=== PATIENT | male | born 1985 | race Caucasian/White ===

== ENCOUNTER → 2019-09-03 10:50 | Outpatient (CLI) | payer OTHER, SELFPAY ==
[2019-09-03 12:10] LABS: Semen Sperm Prescence Post-Vas Absent (ABSENT)
== END ==
PROVIDERS: Family Medicine; PCP Family Medicine; Referring Provider Family Medicine; Visit Provider Family Medicine
DX: Z98.52 Vasectomy status (principal)
CPT/HCPCS: 89321

== ENCOUNTER → 2020-10-08 10:27 | Outpatient (CLI) | payer OTHER, SELFPAY ==
[2020-10-08] MEDS: COVID-19 VACC, Ad26(JANSSEN)/PF 0.5 ML IM (10:31)
== END ==
PROVIDERS: PCP Family Medicine; Visit Provider Internal Medicine
DX: Z23 Encounter for immunization (principal)
CPT/HCPCS: 0031A; 91303

== ENCOUNTER 2021-02-14 20:02 | Emergency (ER) | payer OTHER, SELFPAY ==
[2021-02-14 20:45] VITALS: BP 143/89; PULSE 75; RESP 17; TEMP 36.6; O2SAT 98
--- NOTE | 2021-02-15 00:58 | ED_ITS ---
HPI - Wound/Laceration General Chief Complaint: Wound/Laceration Stated Complaint: LEFT HAND LACERATION Time Seen by Provider: 02/15/21 00:58 Source: patient Mode of arrival: Ambulatory Limitations: no limitations History of Present Illness HPI narrative: This is a 35-year-old male who has complaint of laceration of his left hand. Patient was using an [employer] knife for repairing and drain slipped and cut over the 2nd knuckle left hand. Patient has good range of motion. He denies any numbness, tingling or weakness. Denies any other injuries. He does believe his tetanus is up-to-date. He denies any other major medical issues. He has injured the tendon to the thumb of his left hand in the past and had attempted tendon repair but does not have complete use. 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 He denies any other medical issues. No drug allergies. He quit smoking but does uses smokeless tobacco. He does drink alcohol. No illicit other than marijuana. Patient works fishing but is off work until May. Related Data Previous Rx's Medication Instructions Recorded cephalexin 500 mg capsule 500 mg PO Q6H 6 Days #24 cap 02/15/21 Allergies Allergy/AdvReac Type Severity Reaction Status Date / Time No Known Drug Allergies Allergy Verified 02/14/21 20:48 Review of Systems Review of Systems ROS Unobtainable: All systems reviewed & are unremarkable except as noted in HPI and below Patient History Surgical History Anesthesia History of thumb surgery (~10/20/15) Social History marital status: household members: spouse and children (1 DAUGHTER ) pets and animals: Yes education level: college occupational status: employed seatbelt use: always helmet use: Yes water heater temp set < 120 deg: Yes working smoke detector in home: Yes fire extinguisher in home: Yes carbon monox detector in home: Yes firearms in home: Yes Smoking Status: Former smoker quit status: considering quitting alcohol intake: current (ON OCCASION ) substance use type: does not use during the past year weight has: remained stable well-balanced diet: daily or most days daily servings fruits/ve-1 caffeine: Yes eating out: 1-3 times/week frequency: 1-2 times per week Smoking Status: Former smoker tobacco type: smokeless tobacco alcohol intake frequency: 3 or more drinks per day Substance Use Type: marijuana Exam Narrative Exam Narrative: GENERAL: Alert and oriented x three, male in mild distress. HEENT: Head normocephalic, atraumatic, EOMI, pupils reactive, face symmetric, moist mucous membranes NECK: Supple, full range of motion EXTREMITIES: Normal range of motion, no clubbing or edema. Neurovascularly intact. Patient has a laceration over the proximal joint of the finger on the left hand extending midway between the proximal and middle interphalangeal joint. It is through the skin. Over the proximal joint I am able to visualize what appears to be in the tendon. Tendon does appear to be intact. Patient has full strength with flexion and extension against resistance. He has normal sensation throughout. Cap refills less than 2 seconds. 2+ radial pulse. NEUROLOGICAL: Cranial nerves II through XII grossly intact. Moving all extremities SKIN: Warm, dry, no petechiae, no rashes or lesions. Initial Vital Signs Initial Vital Signs: Vital Signs Temperature 97.9 F 02/14/21 20:45 Pulse Rate 75 02/14/21 20:45 Respiratory Rate 17 02/14/21 20:45 Blood Pressure 143/89 H 02/14/21 20:45 Pulse Oximetry 98 02/14/21 20:45 Procedures Laceration Repair Laceration 1: Time of procedure: 02:10 Site: other (finger, second) Size (cm): 3.8 Description: linear and irregular Depth: involves muscle layer (tendon visualized but appears intact.) Amount of anesthesia used (mL): 4 Pre-repair: wound explored and irrigated extensively Skin layer closed with: nylon (6) Size (cm): 4-0 Course Orders Ordered: Discontinued Medications Cefazolin Sodium (Cephalexin 250 Mg Prepack) 1 bottle MISC SEEINSTR ONE Stop: 02/15/21 01:35 Last Admin: 02/15/21 01:42 Dose: 500 mg Documented by: CHINMAY Lidocaine/Sodium Bicarbonate (Lido 1%/Sod Bicarb 8.4% (10ml) 10 Ml Syringe) 10 ml INJ NOW ONE Stop: 02/15/21 01:35 Last Admin: 02/15/21 01:42 Dose: 10 ml Documented by: CHINMAY Consultations Consultation #1: Dr. Snider, is happy to see patient in the office. Patient laceration repaired, splinted. Vital Signs Vital signs: Vital Signs - 8 hr 02/15/21 02:24 Pulse Rate 69 Respiratory Rate 16 Blood Pressure 135/75 Pulse Oximetry 99 MDM - Wound/Laceration MDM Narrative Medical decision making narrative: This is a 35-year-old male comes emergency department with complaint of laceration over the proximal joint of his 2nd finger on his left hand. Patient has laceration down the tendon it appears intact and he has good strength and range of motion even with resistance on exam but he has lacerated the tendon in his left thumb in the past he had surgical repair but never regained full function. Because of this felt was prudent for patient to be seen by Orthopedic surgery and Dr. Snider agrees. They will see him in the office. Patient had laceration repair here in the department, splint placed by nursing. NVI afterwards. Patient did become lightheaded initially during repair. Given a well washcloth, laid flat a small amount of juice patient felt much better after this. Discharge Plan Departure Patient Disposition: Home Clinical Impression: Laceration of hand Instructions: DI for Laceration Repair -- Complex Activity Restrictions/Additional Instructions: Follow-up with orthopedic surgery for recheck in the next 5-7 days. Call for an appointment in the morning. Recommended that you take antibiotics until completely gone. Prescription sent to [facility]. Keep splint in place to prevent flexion of the finger. There is no obvious tendon laceration but I am able to visualize the tendons there is possibility. You may take Tylenol and/or ibuprofen as needed for pain. Wound Care: Keep wound(s) clean and dry. Wash daily with soap and water only. Do not use over the counter products (alcohol or peroxide)on the wounds unless instructed by a physician. If wound condition worsens (increased/expanding redness, developing fluid blisters, or worsening pain), either contact your doctor for an urgent re- assessment , or return to the Emergency Department. Return to the Emergency Department for any new or worsening symptoms. Return to the ED, urgent care, or vist a primary care doctor for removal or suture or estrella Return if fever greater than 100.4 Fahrenheit, increased swelling, increasing pain or worsening symptoms such as increased discharge or spreading redness. Prescriptions: New cephalexin 500 mg capsule 500 mg PO Q6H 6 Days Qty: 24 RF: 0 Referrals: Lisa Harris MD [Primary Care Provider] - Marietta Snider MD [Physician] -
[2021-02-15] MEDS: LIDO 1%/SOD BICARB 8.4% (10ML) 10 ML SYRINGE INJ (01:42)
[2021-02-15] MEDS: cephALEXin 250 MG PREPACK 1 BOTTLE MISC (01:42)
[2021-02-15 02:24] VITALS: BP 135/75; PULSE 69; RESP 16; O2SAT 99
== END 2021-02-15 02:26 | disposition home or self-care (01) ==
PROVIDERS: Emergency Provider Emergency Medicine; PCP Family Medicine
DX: S61.211A Laceration without foreign body of left index finger without damage to nail, initial encounter (principal); W26.0XXA Contact with knife, initial encounter
CPT/HCPCS: 13132; 29130; 99283

== ENCOUNTER → 2022-09-25 12:13 | Outpatient (CLI) | payer OTHER, SELFPAY ==
--- NOTE | 2022-09-25 | DI.RAD.S_ITS ---
PROCEDURE: XR CHEST 2V INDICATIONS: SHORTNESS OF BREATH TECHNIQUE: 2 views of the chest were acquired. COMPARISON: None. FINDINGS: Surgical changes and devices: None. Lungs and pleura: Lungs are clear. No pleural effusions or pneumothorax. Mediastinum: Mediastinal contours are normal. Heart size is normal. Bones and chest wall: No suspicious bony abnormalities. Soft tissues appear unremarkable. IMPRESSION: No acute pulmonary process. Dictated by: Marilia Wolff M.D. on 09/25/2022 at 12:36 Approved by: Marilia Wolff M.D. on 09/25/2022 at 12:37
== END ==
PROVIDERS: PCP Internal Medicine; Referring Provider Internal Medicine; Visit Provider Internal Medicine
DX: R06.02 Shortness of breath (principal)
CPT/HCPCS: 71046